=== PATIENT | female | born 1980 | race Caucasian/White ===

== ENCOUNTER 2021-12-08 09:10 | Emergency (ER) | payer SELFPAY ==
[2021-12-08 10:05] LABS: UTC Strep Screen (Rapid) Positive (Negative)
[2021-12-08 10:13] VITALS: BP 171/104; PULSE 88; RESP 16; TEMP 36.5; O2SAT 98; BMI 54.7
--- NOTE | 2021-12-08 10:20 | HMH.EDUTC ---
[facility] [place] Impression: Strep throat Disposition: Home, Self-Care Condition on Discharge: Good Instructions: Strep Throat, DI for Strep Throat Additional Instructions: Drink plenty of fluids. Take tylenol or ibuprofen for pain or fever. Take the medications as directed. Follow up with your regular doctor. GO TO THE ER FOR ANY WORSENING SYMPTOMS Throw your tooth brush away and get a new one. Prescriptions: Benzonatate [Benzonatate 100mg cap] 100 mg PO TIDP PRN #30 cap PRN Reason: Cough Transmission Status: Received by [id number] methylPREDNISolone [Medrol] 4 mg PO DIRECTED 6 Days #21 packet Transmission Status: Received by [id number] Cefdinir [Omnicef 300mg Capsule] 300 mg PO BID #20 cap Transmission Status: Received by [id number] Referrals: Provider,Referral, [Primary Care Provider] - Forms: Work/School Release Time of Disposition: 10:57 Medical Decision Making - Medical Records Medical records reviewed: No: I reviewed the patient's medical records. - Joao Inquiry Pt receiving controlled substance: No Vital Signs: 12/08/21 10:13 12/08/21 11:02 Temperature 97.7 F 97.7 F Temperature Source Oral Pulse Rate 88 Pulse Rate [Left] 88 Respiratory Rate 16 16 Blood Pressure 171/104 H Blood Pressure [Right Arm] 171/104 H Blood Pressure Mean [Right Arm] 126 02 Sat by Pulse Oximetry 98 - Lab Data Lab results reviewed: Yes: I reviewed the patient's lab results. Lab Results 12/08/21 09:44: Strep Scn Rapid Clinic Positive [place] [facility] [place] - General Stated complaint: possible strep Time Seen by Provider: 12/08/21 10:21 Mode of Arrival: Ambulatory Source of Information: Patient Limitations: No Limitations Description of Symptoms (Recalled from Triage Doc. by RN): pt c/o a sore throat. two strep positive household members. HEENT Symptoms (Recalled from RN notes): Yes Resp Symptoms (Recalled from RN notes): No Skin Symptoms (Recalled from RN notes): No MS Symptoms (Recalled from RN notes): No Functional Status (Recalled from RN notes): wnl - History of Present Illness Provider Complaint: She c/o a sore throat, chills, and feeling bad for the past 2 days. Her and her 2 sons all have strep throat at this time already. - Related Data Home Medications Medication Instructions Recorded Confirmed buPROPion HCL [Wellbutrin SR 150mg 150 mg PO DAILY 01/18/19 08/09/19 Tablet] Duloxetine HCl [Cymbalta 30mg 90 mg PO DAILY 08/09/19 08/09/19 capsule] Previous Rx's Medication Instructions Recorded Metaxalone [Skelaxin 800mg Tablet] 800 mg PO TID PRN #12 tab 01/18/19 Azithromycin [Z-Galo 250mg Tab*] 250 mg PO UD DOSE PK #6 tab 08/09/19 Brompheniramine/Pseudoephed/Dm 5 ml PO Q6HP PRN #240 syrup 08/09/19 [Bromfed Dm Cough Syrup] methylPREDNISolone [Medrol] 4 mg PO DIRECTED 6 Days #21 08/09/19 tab.ds.pk Benzonatate [Benzonatate 100mg 100 mg PO TIDP PRN #30 cap 12/08/21 cap] Cefdinir [Omnicef 300mg Capsule] 300 mg PO BID #20 cap 12/08/21 methylPREDNISolone [Medrol] 4 mg PO DIRECTED 6 Days #21 12/08/21 packet Allergies Allergy/AdvReac Type Severity Reaction Status Date / Time amoxicillin [From Augmentin] Allergy Verified 12/08/21 10:18 clavulanic acid Allergy Verified 12/08/21 10:18 [From Augmentin] - Worker's Comp Is this a Worker's Comp case?: No [facility] History - Hepatitis A Screen Drug use history?: No High risk sexual behaviors?: No History of sexually transmitted infection?: No Currently employed?: No Childcare worker?: No Do you have indoor plumbing?: Yes Do you have electricity?: Yes Attestation statement:: This patient has been screened for Hepatitis A risk factors. I have reviewed the patient's past medical history: Yes Fractures: Yes (WRIST/ANKLE) - Social History Alcohol Intake: never Occupational Status: employed Household Members: wade
[2021-12-08 11:02] VITALS: BP 171/104; PULSE 88; RESP 16; TEMP 36.5
== END 2021-12-08 11:09 | disposition home or self-care (01) ==
PROVIDERS: Emergency Provider Nurse Practitioner Family
DX: J02.0 Streptococcal pharyngitis (principal)
CPT/HCPCS: 87880; 99202; G0463

== ENCOUNTER → 2022-04-23 09:51 | Outpatient (CLI) | payer OTHER, SELFPAY ==
--- NOTE | 2022-04-23 09:57 | MM_ITS ---
PROCEDURE INFORMATION: Exam: Bilateral Screening 3D Mammography Exam date and time: 04/23/2022 9:58 AM Age: 41 years old Clinical indication: Screening examination TECHNIQUE: Imaging protocol: Bilateral Screening tomosynthesis and 2D mammography including computer-aided detection (CAD) when performed. COMPARISON: [facility] MAMMO W/CAD BILAT 06/10/2019 10:08 AM FINDINGS: MAMMOGRAPHY: Breast composition: The breasts are almost entirely fatty. Mass: None. Architectural distortion: None. Calcifications: No suspicious calcifications. Asymmetric density: None. Skin thickening: None. Axillary adenopathy: None. IMPRESSION: No mammographic evidence of malignancy. Annual screening is recommended unless otherwise clinically indicated. ASSESSMENT: BI-RADS Category 1: Negative
== END ==
PROVIDERS: Visit Provider Obstetrics & Gynecology
DX: Z12.31 Encounter for screening mammogram for malignant neoplasm of breast (principal)
CPT/HCPCS: 77063; 77067

== ENCOUNTER 2022-05-27 21:17 | Emergency (ER) | payer OTHER, SELFPAY ==
[2022-05-27 22:21] VITALS: BP 146/69; PULSE 93; RESP 17; TEMP 36.8; O2SAT 97; BMI 48.0
[2022-05-27 22:31] VITALS: BP 133/71; PULSE 90; O2SAT 97
--- NOTE | 2022-05-27 22:41 | CT_ITS ---
PROCEDURE INFORMATION: Exam: CT Abdomen And Pelvis Without Contrast Exam date and time: 05/27/2022 10:50 PM Age: 41 years old Clinical indication: Abdominal pain; Generalized; Patient HX: PT had iud inserted 2 weeks ago. Cramping and vag bleeding; Additional info: Abdominal pain/cramping TECHNIQUE: Imaging protocol: Computed tomography of the abdomen and pelvis without contrast. Radiation optimization: All CT scans at this facility use at least one of these dose optimization techniques: automated exposure control; mA and/or kV adjustment per patient size (includes targeted exams where dose is matched to clinical indication); or iterative reconstruction. COMPARISON: No relevant prior studies available. FINDINGS: Lungs: Clear basilar lung parenchyma. Pleural spaces: No pleural fluid. Heart: Normal heart size. Liver: Normal. No mass. Gallbladder and bile ducts: Postprandial gallbladder is contracted. Pancreas: Normal. No ductal dilation. Spleen: Normal. No splenomegaly. Adrenal glands: Normal. No mass. Kidneys and ureters: Punctate intrarenal stone right kidney. No stones on the left. No evidence of obstruction on either side. Stomach and bowel: Unremarkable. No obstruction. No mucosal thickening. Appendix: Normal appendix is confirmed. Intraperitoneal space: No pelvic free fluid. Vasculature: Unremarkable. No abdominal aortic aneurysm. Lymph nodes: Unremarkable. No enlarged lymph nodes. Urinary bladder: Unremarkable as visualized. Reproductive: IUD is positioned low in the uterus with the arms protruding into the myometrium in the mid-uterine body. No adnexal masses. Bones/joints: Unremarkable. No acute fracture. Soft tissues: Fat containing umbilical hernia. IMPRESSION: IUD is malpositioned, centered low in the uterus with the arms protruding into the mid uterine myometrium. No full-thickness perforation or pelvic free fluid.
--- NOTE | 2022-05-27 22:41 | US_ITS ---
PROCEDURE INFORMATION: Exam: US Pelvis, Transvaginal Exam date and time: 05/27/2022 11:18 PM Age: 41 years old Clinical indication: Menstruation abnormalities; Excessive menstruation; Other: Iud replaced 2 wks ago; Patient HX: Iud replaced x 2 wks ago-- bleeding heavy today; Additional info: Iud placement confirmation TECHNIQUE: Imaging protocol: Real-time transvaginal pelvic ultrasound with image documentation. Transvaginal imaging was used for better evaluation of the endometrium, adnexa, and/or cervix. COMPARISON: CT ABDOMEN PELVIS WO CON 05/27/2022 10:50 PM FINDINGS: Uterus: Endometrium measures 6 mm in thickness. Long-stem is properly situated in the endometrial canal. The arms protrude into the myometrium on each side. Physiologic appearance of the ovaries. Cervix: There is an IUD situated in the cervix and lower uterus. Right ovary/adnexa: Normal. No mass. Normal ovarian blood flow. Left ovary/adnexa: Normal. No mass. Normal ovarian blood flow. Intraperitoneal space: No free fluid. Soft tissues: Caesarean section scar noted. IMPRESSION: IUD is malpositioned with the arms protruding into the mid uterine myometrium. Long-stem is properly aligned with the endometrial canal.
[2022-05-27 22:46] LABS: Basophils # 0.1 K/mm3 (0-0.2); Basophils % 0.5 % (0.1-2.0); Eosinophils # 0.4 K/mm3 (0.0-0.4); Eosinophils % 3.8 % (0.1-12.0); Hematocrit 41.2 % (37.0-47.0); Hemoglobin 14.6 g/dL (12.2-16.2); Lymphocytes # 2.1 K/mm3 (0.7-4.5); Lymphocytes % 21.3 % (10-50); Mean Corpuscular HGB Conc 35.4 g/dL (31.8-35.4); Mean Corpuscular Hemoglobin 29.3 pg (27.0-31.2); Mean Corpuscular Volume 82.6 fl (81-99); Mean Platelet Volume 8.5 fl (7.4-10.4); Monocytes # 0.4 K/mm3 (0.1-1.0); Neutrophils % 70.4 % (37.0-80.0); Platelet Count 325 K/mm3 (142-424); Red Blood Count 4.98 M/mm3 (4.20-5.40); Red Cell Distribution Width 13.3 % (11.5-17.5); White Blood Count 9.9 K/mm3 (4.8-10.8)
[2022-05-27 22:47] LABS: Microscopic, Urine URINE MICROSCOPIC (MICROSCOPIC)
[2022-05-27 22:48] LABS: Appearance,Urine CLEAR (Clear); Bilirubin,Urine Negative (Negative); Blood, Urine TRACE-L (Negative); Color,Urine YELLOW (Yellow); Glucose,Urine (UA) Negative (Negative); Ketones,Urine TRACE (Negative); Leukocyte Esterase,Urine Negative (Negative); Nitrate,Urine Negative (Negative); Protein,Urine Negative (Negative); Urobilinogen,Urine 0.2 EU/dl (0.2)
--- NOTE | 2022-05-27 22:50 | HMH.EDUROGF ---
ED Disposition Clinical Impression: DUB (dysfunctional uterine bleeding) Malpositioned IUD Qualifiers: Encounter type: initial encounter Qualified Code(s): T83.32XA - Displacement of intrauterine contraceptive device, initial encounter Disposition: Home, Self-Care Condition on Discharge: Good Instructions: DI for Vaginal Bleeding Additional Instructions: call chronograph operator in am Referrals: Taryn Brock MD [Primary Care Provider] - Kathy Trejo MD [Staff Physician] - - Critical Care Critical Care Time: No Attestation: On 05/27/22, the high probability of a clinically significant, sudden or life threatening deterioration of the following system(s) required my full and direct attention, intervention and personal management. The time I documented below is in addition to time spent performing reported procedures but includes the following listed in this critical care notation. Medical Decision Making - Medical Records Medical records reviewed: Yes: I reviewed the patient's medical records. - Joao Inquiry Pt receiving controlled substance: No Vital Signs: 05/27/22 22:21 Temperature 98.3 F Temperature Source Oral Pulse Rate [Left Radial] 93 H Respiratory Rate 17 Blood Pressure [Left Arm] 146/69 H Blood Pressure Mean [Left Arm] 94 Blood Pressure Source [Left Arm] Automatic Cuff Blood Pressure Position [Left Arm] Sitting 02 Sat by Pulse Oximetry 97 Oxygen Delivery Method Room Air - Lab Data Lab results reviewed: Yes: I reviewed the patient's lab results. Lab Results 05/27/22 22:13: Urine Color Yellow, Urine Appearance Clear, Urine pH 6.0, Ur Specific [place] 1.020, Urine Protein Negative, Urine Glucose (UA) Negative, Urine Ketones Trace, Urine Blood Trace-l, Urine Nitrate Negative, Urine Bilirubin Negative, Urine Urobilinogen 0.2, Ur Leukocyte Esterase Negative, Urine RBC Occasional, Urine WBC Occasional, Ur Squamous Epith Cells Occasional 05/27/22 22:13: Urine HCG, Qual Negative 05/27/22 22:38: WBC 9.9, RBC 4.98, Hgb 14.6, Hct 41.2, MCV 82.6, MCH 29.3, MCHC 35.4, RDW 13.3, Plt Count 325, MPV 8.5, Neut % (Auto) 70.4, Lymph % (Auto) 21.3, [place] % (Auto) 4.0, Eos % (Auto) 3.8, Baso % (Auto) 0.5, Neut # (Auto) 7.0, Lymph # (Auto) 2.1, [place] # (Auto) 0.4, Eos # (Auto) 0.4, Baso # (Auto) 0.1 05/27/22 22:38: Sodium 138, Potassium 4.3, Chloride 108 H, Carbon Dioxide 23, Anion Gap 11.3, BUN 18 H, Creatinine 1.10 H, Estimated Creat Clear 67, Estimated GFR 54 L, Est GFR ( Amer) 66, Glucose 104 H, Calcium 9.4, Total Bilirubin < 0.1 L, AST 35, ALT 34, Alkaline Phosphatase 86, Total Protein 7.7, Albumin 4.3, Globulin 3.4 H, Albumin/Globulin Ratio 1.3 Result diagrams: 05/27/22 22:38 05/27/22 22:38 Orders (Tests/Meds): ED MEDICATIONS Generic Name Dose Route Start Last Admin Trade Name Freq PRN Reason Stop Dose Admin Sodium Chloride 1,000 mls @ 999 mls/hr 05/27/22 22:45 05/27/22 22:48 Sod Chlor 0.9% 1000ml Bag IV 05/27/22 23:45 999 mls/hr .Q1H1M ANASTACIA Administration Discontinued Medications Generic Name Dose Route Start Last Admin Trade Name Freq PRN Reason Stop Dose Admin Ketorolac Tromethamine 30 mg 05/27/22 22:48 05/27/22 22:49 Ketorolac 30mg/Ml Vial IV 05/27/22 22:49 30 mg ONCE ONE Administration - CT Data CT Scan: Abdomen, Pelvis Time Received: 00:[address] Reviewed: Yes: I have viewed the radiologist's interpretation Preliminary Findings: Abnormal (see report ) - US Data US Images: Pelvis ED US Reviewed: Yes: I have viewed radiologist's interpretation Findings Narrative: see report - Physician Consults Physician Consulted: alexandra Reason -: Pt condition Medical Decision Narrative: has stable exam with labs and iud - see reports and will see chronograph operator for follow up Female Urogenital HPI - General Chief complaint: Urogenital-Female Stated complaint: VAG BLEEDING Time Seen by Provider: 05/27/22 22:50 Mode of Arrival: Ambulatory Source of Information: Patient, Medica
[2022-05-27 22:51] LABS: RBC,Urine Occasional #/hpf (0-3); Squamous Epithelial Cell,Urine Occasional #/hpf (0-5); Urine Pregnancy, HCG Qual. Negative (Negative); WBC,Urine Occasional #/hpf (0-3)
[2022-05-27 22:52] LABS: Chloride 108 mmol/L (98-107); Sodium 138 mmol/L (136-145)
[2022-05-27 22:53] LABS: Potassium 4.3 mmoL/L (3.5-5.1)
[2022-05-27 22:55] LABS: Alanine Aminotransferase 34 U/L (12-78); Albumin Level 4.3 g/dl (3.5-5.0); Albumin/Globulin Ratio 1.3 (1.1-1.8); Alkaline Phosphatase 86 U/L (38-126); Anion Gap 11.3 mEq/L (5-15); Aspartate Amino Transferase 35 U/L (14-36); Blood Urea Nitrogen 18 mg/dl (7-17); Carbon Dioxide 23 mmol/L (22.0-30.0); Creatinine Clearance Estimated 67 mL/min (50-200); Estimated Glomerular Filt Rate 54 ml/min (>60); GFR (African American) 66 ML/MIN (>60); Globulin 3.4 g/dL (1.3-3.2); Total Protein,Serum 7.7 g/dl (6.3-8.2)
[2022-05-27 22:56] LABS: Bilirubin,Total < 0.1 mg/dl (0.2-1.3); Calcium 9.4 mg/dl (8.4-10.2); Glucose 104 mg/dl (74-100)
[2022-05-28 00:01] VITALS: BP 117/65; PULSE 83; O2SAT 96
[2022-05-28 00:30] VITALS: BP 126/64; PULSE 79; O2SAT 97
[2022-05-28 00:54] VITALS: BP 126/64; PULSE 87; RESP 16; TEMP 36.9; O2SAT 97
== END 2022-05-28 00:57 | disposition home or self-care (01) ==
PROVIDERS: Emergency Provider Emergency Medicine; PCP Family Medicine
DX: N93.8 Other specified abnormal uterine and vaginal bleeding (principal); T83.32XA Displacement of intrauterine contraceptive device, initial encounter; Z79.51 Long term (current) use of inhaled steroids; Z88.1 Allergy status to other antibiotic agents
CPT/HCPCS: 74176; 76830; 80053; 81001; 81025; 85025; 96365; 96375; 99284

== ENCOUNTER 2022-06-17 19:39 | Emergency (ER) | payer OTHER, SELFPAY ==
[2022-06-17 19:50] VITALS: BP 138/80; PULSE 89; RESP 19; TEMP 36.8; O2SAT 96; BMI 47.9
--- NOTE | 2022-06-17 20:09 | EXP.UTC ---
Discharge Plan Disposition Patient Disposition: Home, Self-Care Condition: Good Prescriptions Prescriptions: New cyclobenzaprine 5 mg tablet 5 mg PO TID PRN (Reason: muscle spasm) Qty: 15 0RF No Action Mirena 20 mcg/24 hours (7 yrs) 52 mg intrauterine device 1 % INTRAUTERI DIRECTED duloxetine 30 mg capsule,delayed release(DR/EC) 90 mg PO DAILY Qty: 90 4RF bupropion HCl 150 MG tablet extended release 24 hr 150 mg PO TID Referrals Follow up/Referrals: Taryn Brock MD [Primary Care Provider] - See instructions Activity Restrictions/Add. Instructions Additional Instructions/Restrictions: Continue to take Ibuprofen as prescribed Over the counter muscle rubs and lidocaine patches may help pain Warm compresses may help with pain and tightness Return if needed Take prescribed muslce relaxers as prescribed Straight to ER if any life threatening symptoms Follow up with Family Doctor if no improvement or any worsening of symptoms Clinical Impressions Clinical Impression: Muscle spasm Stand Alone Forms Stand Alone Forms: Work/School Release Instructions Patient Instructions: DI for Muscle Spasm, Cyclobenzaprine Discharge ED Provider: Madelyn Goodman [facility] General Stated complaint: left shoulder and arm pain Mode of Arrival: Ambulatory Source of Information: Patient Limitations: No Limitations Time Seen by Provider: 06/17/22 20:09 Description of Symptoms (Recalled from Triage Doc. by RN): PATIENT C/O LEFT SHOULDER AND ARM PAIN THAT STARTED APPROX 1.5 WEEKS AGO. NO KNOWN INJURY HEENT Symptoms (Recalled from RN notes): No Resp Symptoms (Recalled from RN notes): No Skin Symptoms (Recalled from RN notes): No MS Symptoms (Recalled from RN notes): Yes Functional Status (Recalled from RN notes): WNL History of Present Illness Provider Complaint: Patient states that for the last week and half she has been having pain in her left shoulder blade area into shoulder and down arm with tingly like feeling in her fingers that is worse with movement States that she woke up with the pain and thinks she may have slept wrong States that area feels tight and hurts when she raises her head up and certain ways she moves her head States that also when she tries to raise arm she has achy like pain like she had before with bursitis Denies chest pain Denies known injury State that pain worse with movement Related Data Home Medications Medication Instructions Recorded Confirmed levonorgestrel 20 mcg/24 hours (7 1 % intrauterine DIRECTED 04/09/22 05/28/22 yrs) 52 mg intrauterine device control (Mirena) bupropion HCl 150 mg 24 hr tablet, 150 mg PO TID ANXIETY/DEPRESSION 05/27/22 05/28/22 extended release Previous Rx's Medication Instructions Recorded duloxetine 30 mg capsule,delayed 90 mg PO DAILY Depression #90 caps 04/09/22 release cyclobenzaprine 5 mg tablet 5 mg PO TID PRN muscle spasm #15 06/17/22 tabs Allergies Allergy/AdvReac Type Severity Reaction Status Date / Time amoxicillin [From Augmentin] Allergy Verified 05/28/22 10:49 clavulanic acid Allergy Verified 05/28/22 10:49 [From Augmentin] Worker's Comp Is this a Worker's Comp case?: No PFSH PFSH Medical History (Updated 06/17/22 @ 20:41 by Madelyn Goodman APRN) Anxiety Asthma Depression Migraine Surgical History (Updated 06/17/22 @ 20:06 by Johana Payne RN) H/O wrist surgery History of ankle surgery History of arthroscopy of knee History of section Hx of breast reduction, elective Social History Smoking Status: Never smoker alcohol intake: never substance use type: denies use current occupational status: employed Travel in the last 8 weeks: None household members: significant other ROS Obtained: Yes All systems reviewed & no additional complaints except as documented and Yes Systems reviewed as appropriat
[2022-06-17 20:42] VITALS: BP 138/80; PULSE 89; RESP 19; TEMP 36.8; O2SAT 96
== END 2022-06-17 20:48 | disposition home or self-care (01) ==
PROVIDERS: Emergency Provider Nurse Practitioner; PCP Family Medicine
DX: M62.838 Other muscle spasm (principal); M25.512 Pain in left shoulder; M79.602 Pain in left arm
CPT/HCPCS: 96372; 99212; G0463

== ENCOUNTER 2022-10-10 17:24 | Emergency (ER) | payer OTHER, SELFPAY ==
[2022-10-10 18:40] VITALS: BP 133/79; PULSE 93; RESP 18; TEMP 36.8; O2SAT 98; BMI 45.6
--- NOTE | 2022-10-10 18:58 | EXP.UTC ---
Discharge Plan Disposition Patient Disposition: Home, Self-Care Condition: Good Prescriptions Prescriptions: New prednisone [prednisone] 20 mg tablet 20 mg PO BID 5 Days Qty: 10 0RF azithromycin [Zithromax Z-Galo] 250 mg tablet See Rx Instructions .ROUTE .COMPLEX 5 Days Qty: 6 0RF Rx Instructions: For 250 mg dose pack: take 500 mg today (day 1), then 250 mg for 4 days (days 2-5) polymyxin B sulf-trimethoprim [Polytrim] 10,000 unit- 1 mg/mL drops 2 drp ophthalmic (eye) Q6H 7 Days Qty: 10 0RF Rx Instructions: right eye while awake; do not exceed 6 doses in 24 hours No Action Mirena 20 mcg/24 hours (7 yrs) 52 mg intrauterine device 1 % INTRAUTERI DIRECTED duloxetine 30 mg capsule,delayed release(DR/EC) 90 mg PO DAILY Qty: 90 0RF bupropion HCl 150 MG tablet extended release 24 hr 150 mg PO TID cyclobenzaprine 5 mg tablet 5 mg PO TID PRN (Reason: muscle spasm) Qty: 15 0RF Referrals Follow up/Referrals: Taryn Brock MD [Primary Care Provider] - See instructions Activity Restrictions/Add. Instructions Additional Instructions/Restrictions: *Monitor Temp, Over the counter Motrin or Tylenol as directed/as needed Tylenol every 4 hours and Motrin every 6 hours (as long as your family doctor has told you that you can take it) for fever or pain. and straight to ER if unable to lower temp less than 101.0 after medication given *Warm salt water gargles may help to soothe the throat *Throat Lozenges? *Warm fluids like tea with honey may help to soothe the throat? *Sleep elevated *Humidifier/Vaporizer Take medication as prescribed Follow up IMMEDIATELY for new or worsening symptoms or no Noticeable improvement over the next 48-72 hours. 911 for difficulty breathing or swallowing Clinical Impressions Clinical Impression: Otitis media, Conjunctivitis Instructions Patient Instructions: Conjunctivitis, DI for Conjunctivitis, Middle Ear Infection Discharge ED Provider: Madelyn Goodman [facility] General Stated complaint: sore throat, crista body aches Mode of Arrival: Ambulatory Source of Information: Patient Limitations: No Limitations Time Seen by Provider: 10/10/22 18:58 Description of Symptoms (Recalled from Triage Doc. by RN): PATIENT C/O CONGESTION, BODY ACHES, COUGH, FATIGUE, AND POSSIBLE PINK EYE HEENT Symptoms (Recalled from RN notes): Yes Resp Symptoms (Recalled from RN notes): Yes Skin Symptoms (Recalled from RN notes): No MS Symptoms (Recalled from RN notes): No Functional Status (Recalled from RN notes): WNL History of Present Illness Provider Complaint: Patient states that she has been having sinus congestion and pressure, pain in her ears, body aches, headache and fatigue States she woke up this morning with her right eye red, draining and thinks she may have pink eye now too Related Data Home Medications Medication Instructions Recorded Confirmed levonorgestrel 20 mcg/24 hours (8 1 % intrauterine DIRECTED 04/09/22 05/28/22 yrs) 52 mg intrauterine device control (Mirena) bupropion HCl 150 mg 24 hr tablet, 150 mg PO TID ANXIETY/DEPRESSION 05/27/22 05/28/22 extended release Previous Rx's Medication Instructions Recorded cyclobenzaprine 5 mg tablet 5 mg PO TID PRN muscle spasm #15 06/17/22 tabs duloxetine 30 mg capsule,delayed 90 mg PO DAILY #90 caps 06/22/22 release azithromycin 250 mg tablet See Rx Instructions PO .COMPLEX 5 10/10/22 (Zithromax Z-Galo) days #6 tabs polymyxin B sulfate 10,000 2 drp ophthalmic (eye) Q6H 7 days 10/10/22 unit-trimethoprim 1 mg/mL eye #10 mL drops (Polytrim) prednisone 20 mg tablet 20 mg PO BID 5 days #10 tabs 10/10/22 Allergies Allergy/AdvReac Type Severity Reaction Status Date / Time amoxicillin [From Augmentin] Allergy Verified 05/28/22 10:49 clavulanic acid Allergy Verified 05/28/22 10:49 [From Augmentin] Worker's Comp Is this a Worker's Comp case?: No
[2022-10-10 19:13] VITALS: BP 133/79; PULSE 93; RESP 18; TEMP 36.8; O2SAT 98
[2022-10-10 19:25] LABS: UTC Influenza A Antigen Negative (Negative)
[2022-10-10 19:26] LABS: UTC Influenza B Antigen Negative (Negative)
== END 2022-10-10 19:19 | disposition home or self-care (01) ==
PROVIDERS: Emergency Provider Nurse Practitioner; PCP Family Medicine
DX: H66.90 Otitis media, unspecified, unspecified ear (principal); H10.9 Unspecified conjunctivitis
CPT/HCPCS: 87804; 99212; G0463

== ENCOUNTER → 2023-02-27 11:42 | Outpatient (CLI) | payer OTHER, SELFPAY ==
--- NOTE | 2023-02-27 11:47 | XR_ITS ---
FINAL REPORT CLINICAL HISTORY: SI JOINT DISFUNCTION RADICULAR PAIN OF RT LOER EXTREMITY FINDINGS: LUMBAR SPINE Five views demonstrate no acute fracture. There are mild degenerative changes in the lower lumbar spine. Mild rightward curvature is identified. An IUD seen in the mid pelvis.. There is no malalignment. IMPRESSION: Degenerative changes without acute bony abnormality. Reviewed, Interpreted and Dictated by Karlos Ly III, MD Transcribed by Rubi Guerrero Authenticated and [facility]
== END ==
LOC: RAD 11:42
PROVIDERS: PCP Family Medicine; Visit Provider Nurse Practitioner Family
DX: M53.3 Sacrococcygeal disorders, not elsewhere classified (principal); M54.10 Radiculopathy, site unspecified
CPT/HCPCS: 72110

== ENCOUNTER → 2023-04-05 10:45 | Outpatient (CLI) | payer OTHER, SELFPAY ==
--- NOTE | 2023-04-05 10:57 | MR_ITS ---
FINAL REPORT CLINICAL HISTORY: LUMBAGO WITH RIGHT SIDED SCIATICA X 1 MONTH COMPARISON: None FINDINGS: Multiplanar MR imaging of the lumbar spine was performed without contrast. On the sagittal T2-weighted images, there is abnormal decreased signal involving the L3-4, L4-5, and L5-S1 lumbar discs. The vertebrae are of normal height. The vertebral alignment is normal. L1-2: There is no significant canal stenosis or neural foraminal narrowing. L2-3: There is no significant canal stenosis or neural foraminal narrowing. L3-4: There is mild to moderate facet hypertrophy present at this level. L4-5: There is a mild broad-based disc bulge with [id number] facet hypertrophy and [id number] bilateral neural foraminal narrowing. L5-S1: There is a mild broad-based bulge with mild facet hypertrophy and [id number] left neural foraminal narrowing. IMPRESSION: Lumbar disc disease primarily at the L3-4, L4-5, and L5-S1 levels as described above. Reviewed, Interpreted and Dictated by Mark Vasquez MD Transcribed by Adrienne Cartwright Authenticated and [facility]
== END ==
LOC: RAD 10:45
PROVIDERS: PCP Family Medicine; Visit Provider Nurse Practitioner Family
DX: M54.41 Lumbago with sciatica, right side (principal)
CPT/HCPCS: 72148; 76376

== ENCOUNTER → 2023-05-31 13:15 | Outpatient (CLI) | payer OTHER, SELFPAY ==
[2023-05-31 13:49] LABS: Basophils # 0.1 K/mm3 (0-0.2); Basophils % 0.6 % (0.1-2.0); Eosinophils # 0.2 K/mm3 (0.0-0.4); Eosinophils % 2.9 % (0.1-12.0); Hematocrit 43.5 % (37.0-47.0); Hemoglobin 14.5 g/dL (12.2-16.2); Lymphocytes # 1.6 K/mm3 (0.7-4.5); Lymphocytes % 21.8 % (10-50); Mean Corpuscular HGB Conc 33.4 g/dL (31.8-35.4); Mean Corpuscular Hemoglobin 28.3 pg (27.0-31.2); Mean Corpuscular Volume 84.6 fl (81-99); Mean Platelet Volume 8.5 fl (7.4-10.4); Monocytes # 0.4 K/mm3 (0.1-1.0); Monocytes % 5.6 % (1.7-9.3); Platelet Count 340 K/mm3 (142-424); Red Blood Count 5.14 M/mm3 (4.20-5.40); Red Cell Distribution Width 13.6 % (11.5-17.5); White Blood Count 7.3 K/mm3 (4.8-10.8)
[2023-05-31 14:25] LABS: Chloride 110 mmol/L (98-107)
[2023-05-31 14:26] LABS: Potassium 4.5 mmoL/L (3.5-5.1); Sodium 142 mmol/L (136-145)
[2023-05-31 14:28] LABS: Alanine Aminotransferase 32 U/L (12-78); Alkaline Phosphatase 78 U/L (38-126); Aspartate Amino Transferase 25 U/L (14-36); Bilirubin,Total 0.5 mg/dl (0.2-1.3)
[2023-05-31 14:29] LABS: Albumin Level 3.7 g/dl (3.5-5.0); Albumin/Globulin Ratio 1.2 (1.1-1.8); Anion Gap 13.5 mEq/L (5-15); Calcium 9.3 mg/dl (8.4-10.2); Carbon Dioxide 23 mmol/L (22.0-30.0); Chol/HDL Ratio 4.3 (1-3.5); Cholesterol 167 mg/dl (140-200); Glucose 105 mg/dl (74-100); HDL Cholesterol 39 mg/dl (40-60); Iron 58 ug/dL (37-170); Total Protein,Serum 6.7 g/dl (6.3-8.2); Triglycerides 75 mg/dl (30-150); VLDL Cholesterol 15 mg/dL (0-40)
[2023-05-31 14:39] LABS: Total Iron Binding Capacity 334 ug/dL (265-497)
[2023-05-31 14:40] LABS: Direct LDL Cholesterol 99.84 mg/dL (100-129)
[2023-05-31 15:00] LABS: Thyroid Stimulating Hormone 1.14 uIU/mL (0.465-4.68)
[2023-05-31 15:52] LABS: 25-OH Vitamin D, Total 30.2 ng/mL (30-100)
[2023-05-31 16:14] LABS: Hemoglobin A1C 5.4 % (4.0-6.0)
[2023-05-31 20:20] LABS: Blood Urea Nitrogen 18 mg/dl (7-17); Estimated Glomerular Filt Rate 68 ml/min (>60); GFR (African American) 82 ML/MIN (>60)
[2023-05-31 20:33] LABS: Intact Parathyroid Hormone 77.4 pg/mL (7.5-53.5)
[2023-05-31 21:40] LABS: Folate 7.99 ng/mL
[2023-06-03 17:36] LABS: Ferritin 21.7 ng/ml (6.24-137)
[2023-06-06 06:13] LABS: Vitamin B1 163.9 nmol/L (66.5-200.0)
[2023-06-06 12:01] LABS: Methylmalonic Acid 157 nmol/L (0-378)
[2023-06-07 14:21] LABS: Vitamin A 44.6 ug/dL (20.1-62.0); Vitamin E Alpha Tocopherol 11.2 mg/L (7.0-25.1); Vitamin E Gamma Tocopherol 1.2 mg/L (0.5-5.5)
== END ==
LOC: LAB 13:16
PROVIDERS: PCP Nurse Practitioner Family; Visit Provider Physician Assistant
DX: E66.9 Obesity, unspecified (principal); Z68.42 Body mass index [BMI] 45.0-49.9, adult; Z79.899 Other long term (current) drug therapy
CPT/HCPCS: 36415; 80053; 80061; 82306; 82728; 82746; 83036; 83540; 83550; 83921; 83970; 84425; 84443; 84446; 84590; 85025

== ENCOUNTER 2023-11-29 11:47 | Emergency (ER) | payer OTHER, SELFPAY ==
[2023-11-29 12:10] VITALS: PULSE 98; RESP 22; TEMP 37; O2SAT 100; BMI 57.1
--- NOTE | 2023-11-29 12:27 | ED_ITS ---
Discharge Plan Disposition Patient Disposition: Home, Self-Care Condition: Good Prescriptions Prescriptions: New cefdinir 300 mg capsule 300 mg PO BID Qty: 20 0RF No Action duloxetine 30 mg capsule,delayed release(DR/EC) 90 mg PO DAILY Qty: 90 0RF bupropion HCl 150 MG tablet extended release 24 hr 150 mg PO TID Referrals Follow up/Referrals: Taryn Brock MD [Primary Care Provider] - See instructions Activity Restrictions/Add. Instructions Additional Instructions/Restrictions: *Monitor Temp, Over the counter Motrin or Tylenol as directed/as needed Tylenol every 4 hours and Motrin every 6 hours (as long as your family doctor has told you that you can take it) for fever or pain. and straight to ER if unable to lower temp less than 101.0 after medication given *Warm salt water gargles may help to soothe the throat *Throat Lozenges? *Warm fluids like tea with honey may help to soothe the throat? *Sleep elevated *Humidifier/Vaporizer * Your throat swab was sent for culture. Those results are typically sent to your primary care. Be sure to follow up in 2-3 days with your family doctor/primary care physician if no improvement so they can review those result and treat if necessary. If you don?t have a primary care doctor, I recommend you get one but in the mean time, you will have to return to a walk in clinic Follow up IMMEDIATELY for new or worsening symptoms or no Noticeable improvement over the next 48-72 hours. 911 for difficulty breathing or swallowing Clinical Impressions Clinical Impression: Strep throat Instructions Patient Instructions: DI for Strep Throat, Strep Throat Discharge ED Provider: Madelyn Goodman [facility] [place] HPI General Stated complaint: sore throat, [place], body aches, dizzy Mode of Arrival: Ambulatory Source of Information: Patient Limitations: No Limitations Time Seen by Provider: 11/29/23 12:27 Description of Symptoms (Recalled from Triage Doc. by RN): PATIENT C/O SORE THROAT, CONGESTION, BODY ACHES AND DIZZINESS X 2 DAYS HEENT Symptoms (Recalled from RN notes): Yes Resp Symptoms (Recalled from RN notes): No Skin Symptoms (Recalled from RN notes): No MS Symptoms (Recalled from RN notes): No Functional Status (Recalled from RN notes): WNL History of Present Illness Provider Complaint: Patient states that she has been having sore throat, nasal congestion pain in her ears, dizziness on and off and body aches for the last couple of days so today she came in to get checked Related Data Home Medications Medication Instructions Recorded Confirmed bupropion HCl 150 mg 24 hr tablet, 150 mg PO TID ANXIETY/DEPRESSION 05/27/22 11/29/23 extended release Previous Rx's Medication Instructions Recorded duloxetine 30 mg capsule,delayed 90 mg PO DAILY #90 caps 06/22/22 release cefdinir 300 mg capsule 300 mg PO BID #20 caps 11/29/23 Allergies Allergy/AdvReac Type Severity Reaction Status Date / Time amoxicillin [From Augmentin] AdvReac Vomiting Verified 11/29/23 12:34 clavulanic acid AdvReac Vomiting Verified 11/29/23 12:34 [From Augmentin] Worker's Comp Is this a Worker's Comp case?: No [facility] Disclaimer: The information contained in this section may have been updated after the jeff bang was seen, as this information can be updated by other users. Medical History (Updated 11/29/23 @ 12:38 by Madelyn Goodman APRN) Anxiety Asthma Depression Migraine Surgical History H/O wrist surgery History of ankle surgery History of arthroscopy of knee History of section Hx of breast reduction, elective Social History (Updated 10/10/22 @ 18:51 by Johana Payne RN) Smoking Status: Never smoker alcohol intake: never substance use type: denies use current occupational status: employed Travel in the last 8 weeks: None household members: significant other ROS Obtained: Yes All systems reviewed & no additional complaints except as documented and Yes Systems reviewed as appropriate & no additional complaints except as documented Constitutional Constitutional: Reports system reviewed and no additional complaints, except as documented, Reports as per HPI, Reports body ache, Reports chills, Reports fever (s) and Reports headache(s) ENT Ears, Nose, Mouth, and Throat: Reports system reviewed and no additional complaints, except as documented, Reports as per HPI, Reports dizziness, Reports otalgia, Reports headache(s) and Reports sore throat Cardiovascular Cardiovascular: Reports system reviewed and no additional complaints, except as documented and Reports as per HPI Respiratory Respiratory: Reports system reviewed and no additional complaints, except as documented and Reports as per HPI Neurologic Neurologic: Reports dizziness and Reports headache(s) Physical Exam General General appearance: alert and in no apparent distress ENT ENT exam: Present mucous membranes moist Expanded ENT Exam TM/Canal exam: Right TM: erythema and Bilateral TM: bulging Nose exam: Present sinus tenderness Throat exam: Present other (mild pharyngeal erythema noted with PND) Respiratory Respiratory exam: Present normal lung sounds bilaterally; Absent respiratory distress or wheezes Cardiovascular Cardiovascular exam: Present regular rate, normal rhythm and normal heart sounds Neurological Exam Neurological exam: Present alert, oriented X3 and normal gait Medical Decision Making Joao Inquiry Pt receiving controlled substance: No Joao was queried for this patient: No Vital Signs: 11/29/23 12:10 Temperature 98.6 F Temperature Source Oral Pulse Rate [Right Brachial] 98 H Respiratory Rate 22 02 Sat by Pulse Oximetry 100 Oxygen Delivery Method Room Air Lab Data Lab results reviewed: Yes I reviewed the patient's lab results. Medical Decision Narrative: Patient states that she is not allergic to Augmentin it makes her vomit and she has taken Cefdnir in the past without complications or reactions
[2023-11-29 12:36] VITALS: BP 0/0; PULSE 98; RESP 22; TEMP 37; O2SAT 100
[2023-11-29 12:49] LABS: UTC Influenza A Antigen Negative (Negative); UTC Strep Screen (Rapid) Positive (Negative)
[2023-11-29 12:50] LABS: UTC Influenza B Antigen Negative (Negative)
== END 2023-11-29 12:50 | disposition home or self-care (01) ==
PROVIDERS: Emergency Provider Nurse Practitioner; PCP Family Medicine
DX: J02.0 Streptococcal pharyngitis (principal); R07.0 Pain in throat; R51.9 Headache, unspecified; R42 Dizziness and giddiness; R09.81 Nasal congestion; M79.18 Myalgia, other site
CPT/HCPCS: 87804; 87880; 99212; 99214; G0463

== ENCOUNTER 2023-12-20 08:57 | Emergency (ER) | payer OTHER, SELFPAY ==
[2023-12-20 09:05] VITALS: PULSE 100; RESP 18; TEMP 36.8; O2SAT 97; BMI 53.1
--- NOTE | 2023-12-20 09:16 | EXP.UTC ---
Discharge Plan Disposition Patient Disposition: Home, Self-Care Condition: Good Prescriptions Prescriptions: New azithromycin [Zithromax] 250 mg tablet 250 mg PO UD DOSE PK Qty: 6 0RF Rx Instructions: Take two (2) tablets today, then one (1) tablet days #2 thru #5 benzonatate 100 mg capsule 100 mg PO TIDP PRN (Reason: Cough) Qty: 30 0RF methylprednisolone 4 mg Tablets,Dose Pack 4 mg PO DIRECTED 6 Days Qty: 21 0RF Rx Instructions: Take 1 pack as directed for 6 days No Action duloxetine 30 mg capsule,delayed release(DR/EC) 90 mg PO DAILY Qty: 90 0RF bupropion HCl 150 MG tablet extended release 24 hr 150 mg PO TID Referrals Follow up/Referrals: Taryn Brock MD [Primary Care Provider] - See instructions Activity Restrictions/Add. Instructions Additional Instructions/Restrictions: Drink plenty of fluids. Take tylenol or ibuprofen for pain or fever. Take the medications as directed. Follow up with your regular doctor. GO TO THE ER FOR ANY WORSENING SYMPTOMS Throw your tooth brush away and get a new one. Clinical Impressions Clinical Impression: Strep throat Stand Alone Forms Stand Alone Forms: Work/School Release Instructions Patient Instructions: Strep Throat, DI for Strep Throat Discharge ED Provider: Kristopher Gagnon [facility] General Stated complaint: body aches, sore throat Time Seen by Provider: 12/20/23 09:16 History of Present Illness Provider Complaint: She states that for the past 2 days she has had chills, sore throat, cough and malaise. Related Data Home Medications Medication Instructions Recorded Confirmed bupropion HCl 150 mg 24 hr tablet, 150 mg PO TID ANXIETY/DEPRESSION 05/27/22 12/20/23 extended release Previous Rx's Medication Instructions Recorded duloxetine 30 mg capsule,delayed 90 mg (3 x 30 mg) PO DAILY #90 caps 06/22/22 release azithromycin 250 mg tablet 250 mg PO UD DOSE PK #6 tabs 12/20/23 (Zithromax) benzonatate 100 mg capsule 100 mg PO TIDP PRN Cough #30 caps 12/20/23 methylprednisolone 4 mg tablets in 4 mg PO DIRECTED 6 days #21 tabs 12/20/23 a dose pack Allergies Allergy/AdvReac Type Severity Reaction Status Date / Time amoxicillin [From Augmentin] AdvReac Vomiting Verified 12/20/23 09:53 clavulanic acid AdvReac Vomiting Verified 12/20/23 09:53 [From Augmentin] [facility] Disclaimer: The information contained in this section may have been updated after the patient was seen, as this information can be updated by other users. Medical History (Updated 12/20/23 @ 09:55 by Kristopher Gagnon APRN) Depression Anxiety Migraine Asthma Surgical History History of ankle surgery H/O wrist surgery History of arthroscopy of knee Hx of breast reduction, elective History of section Social History Smoking Status: Never smoker alcohol intake: never substance use type: denies use current occupational status: employed Travel in the last 8 weeks: None household members: significant other ROS Obtained: Yes All systems reviewed & no additional complaints except as documented Constitutional Constitutional: Reports chills and Reports fever(s) Eyes Eyes: Denies eye discharge ENT Ears, Nose, Mouth, and Throat: Reports as per HPI Cardiovascular Cardiovascular: Denies chest pain Respiratory Respiratory: Denies chest congestion and Reports cough Gastrointestinal Gastrointestingal: Reports nausea; Denies abdominal pain, constipation, cramping, diarrhea or vomiting Musculoskeletal Musculoskeletal: Denies arthralgias Integumentary/Breasts Skin/Breast: Denies rash Neurologic Neurologic: Denies paresthesias Physical Exam General General appearance: alert and in no apparent distress Head Head exam: atraumatic, normocephalic and normal inspection Eye Eye exam: Present normal appearance, PERRL and EOMI ENT ENT exam: Present mucous membranes moist and normal external ear exam Expanded ENT Exam TM/Canal exam: Bilateral TM: erythema and bulging Nose exam: Absent sinus tenderness Mouth exam: Present normal external inspection; Absent drooling Teeth exam: Present normal inspection Throat exam: Present tonsillar erythema, tonsillomegaly and tonsillar exudate Neck Neck exam: Present normal inspection, full ROM and trachea midline; Absent tenderness, meningismus or lymphadenopathy Chest Chest inspection: Present normal inspection and symmetric chest wall rise; Absent tenderness Respiratory Respiratory exam: Present normal lung sounds bilaterally; Absent respiratory distress, wheezes or stridor Cardiovascular Cardiovascular exam: Present regular rate and normal rhythm; Absent systolic murmur or diastolic murmur Abdominal Exam Abdominal exam: Present soft and normal bowel sounds; Absent distention, tenderness, guarding, rebound or rigidity Extremities Exam Extremities exam: Present normal inspection and normal capillary refill; Absent calf tenderness Back Exam Back exam: Present normal inspection and full ROM; Absent tenderness, CVA tenderness (R) or CVA tenderness (L) Neurological Exam Neurological exam: Present alert, oriented X3 and CN II-XII intact Psychiatric Psychiatric exam: Present normal affect and normal mood Skin Skin exam: Present warm, dry, intact and normal color Medical Decision Making Medical Records Medical records reviewed: No I reviewed the patient's medical records. Joao Inquiry Pt receiving controlled substance: No Lab Data Lab results reviewed: Yes I reviewed the patient's lab results.
[2023-12-20 09:44] LABS: UTC Strep Screen (Rapid) Positive (Negative)
[2023-12-20 10:08] VITALS: BP 0/0; PULSE 100; RESP 18; TEMP 36.8; O2SAT 97
== END 2023-12-20 10:08 | disposition home or self-care (01) ==
PROVIDERS: Emergency Provider Nurse Practitioner Family; PCP Family Medicine
DX: J02.0 Streptococcal pharyngitis (principal); R07.0 Pain in throat; R05.9 Cough, unspecified; R53.81 Other malaise
CPT/HCPCS: 87880; 99212; 99214; G0463

== ENCOUNTER 2024-01-02 16:42 | Emergency (ER) | payer OTHER, SELFPAY ==
[2024-01-02 16:55] VITALS: BP 187/105; PULSE 97; RESP 24; TEMP 36.8; O2SAT 100; BMI 53.1
--- NOTE | 2024-01-02 17:34 | ED_ITS ---
Discharge Plan Disposition Patient Disposition: Home, Self-Care Condition: Good Prescriptions Prescriptions: New meclizine 25 mg tablet 25 mg PO TID PRN (Reason: dizziness) Qty: 12 0RF cefdinir 300 mg capsule 300 mg PO BID Qty: 20 0RF fluticasone propionate [Flonase Allergy Relief] 50 mcg/actuation spray,suspension 1 - 2 spray intranasal DAILY Qty: 16 0RF Rx Instructions: administer into each nostril No Action duloxetine 30 mg capsule,delayed release(DR/EC) 90 mg PO DAILY Qty: 90 0RF bupropion HCl 150 MG tablet extended release 24 hr 150 mg PO TID Referrals Follow up/Referrals: Taryn Brock MD [Primary Care Provider] - See instructions Activity Restrictions/Add. Instructions Additional Instructions/Restrictions: *Monitor Temp, Over the counter Motrin or Tylenol as directed/as needed Tylenol every 4 hours and Motrin every 6 hours (as long as your family doctor has told you that you can take it) for fever or pain. and straight to ER if unable to lower temp less than 101.0 after medication given *Warm salt water gargles may help to soothe the throat *Throat Lozenges? *Warm fluids like tea with honey may help to soothe the throat? *Sleep elevated *Humidifier/Vaporizer *Flonase 2 sprays in each nostril daily but be aware that it may take 2-3 days before you notice improvement Your throat swab was sent for culture. Those results are typically sent to your primary care. Be sure to follow up in 2-3 days with your family doctor/primary care physician if no improvement so they can review those result and treat if necessary. If you don?t have a primary care doctor, I recommend you get one but in the mean time, you will have to return to a walk in clinic Follow up IMMEDIATELY for new or worsening symptoms or no Noticeable impro vement over the next 48-72 hours. 911 for difficulty breathing or swallowing Clinical Impressions Clinical Impression: Otitis media Instructions Patient Instructions: DI for Vertigo, Ear Infections (Alternative Therapy) Discharge ED Provider: Madelyn Goodman [facility] [place] HPI General Stated complaint: dizzy, body aches Mode of Arrival: Ambulatory Source of Information: Patient Limitations: No Limitations Time Seen by Provider: 01/02/24 17:34 Description of Symptoms (Recalled from Triage Doc. by RN): PATIENT C/O BODY ACHES, DIZZINESS, EAR PRESSURE, AND SORE THROAT THAT STARTED AROUND MIDNIGHT HEENT Symptoms (Recalled from RN notes): Yes Resp Symptoms (Recalled from RN notes): No Skin Symptoms (Recalled from RN notes): No MS Symptoms (Recalled from RN notes): No Functional Status (Recalled from RN notes): WNL History of Present Illness Provider Complaint: Patient states that she has been having pain and pressure in both ears for several weeks but last night started with body aches, chills, sore throat and feeling dizzy at times when she moves or stands too quickly states feel like the room is spinning around her thinks it may be from her ears so today when she wasnt feeling any better she came in to get checked Related Data Home Medications Medication Instructions Recorded Confirmed bupropion HCl 150 mg 24 hr tablet, 150 mg PO TID ANXIETY/DEPRESSION 05/27/22 01/02/24 extended release Previous Rx's Medication Instructions Recorded duloxetine 30 mg capsule,delayed 90 mg (3 x 30 mg) PO DAILY #90 caps 06/22/22 release cefdinir 300 mg capsule 300 mg PO BID #20 caps 01/02/24 fluticasone propionate 50 1 - 2 spray intranasal DAILY #16 01/02/24 mcg/actuation nasal grams spray,suspension (Flonase Allergy Relief) meclizine 25 mg tablet 25 mg PO TID PRN dizziness #12 tabs 01/02/24 Allergies Allergy/AdvReac Type Severity Reaction Status Date / Time amoxicillin [From Augmentin] AdvReac Vomiting Verified 12/20/23 09:53 clavulanic acid AdvReac Vomiting Verified 12/20/23 09:53 [From Augmentin] Worker's Comp Is this a Worker's Comp case?: No [facility] Disclaimer: The information contained in this section may have been updated after the patient was seen, as this information can be updated by other users. Medical History (Updated 01/02/24 @ 17:49 by Madelyn Goodman APRN) Depression Anxiety Migraine Asthma Surgical History History of ankle surgery H/O wrist surgery History of arthroscopy of knee Hx of breast reduction, elective History of section Social History Smoking Status: Never smoker alcohol intake: never substance use type: denies use current occupational status: employed Travel in the last 8 weeks: None household members: significant other ROS Obtained: Yes All systems reviewed & no additional complaints except as documented and Yes Systems reviewed as appropriate & no additional complaints except as documented Constitutional Constitutional: Reports system reviewed and no additional complaints, except as documented and Reports as per HPI ENT Ears, Nose, Mouth, and Throat: Reports system reviewed and no additional complaints, except as documented, Reports as per HPI and Reports otalgia Cardiovascular Cardiovascular: Reports system reviewed and no additional complaints, except as documented and Reports as per HPI Respiratory Respiratory: Reports system reviewed and no additional complaints, except as documented and Reports as per HPI Gastrointestinal Gastrointestingal: Reports system reviewed and no additional complaints, except as documented and as per HPI Musculoskeletal Musculoskeletal: Reports system reviewed and no additional complaints, except as documented and Reports as per HPI Physical Exam General General appearance: alert and in no apparent distress ENT ENT exam: Present mucous membranes moist Expanded ENT Exam TM/Canal exam: Right TM: erythema and bulging Respiratory Respiratory exam: Present normal lung sounds bilaterally; Absent respiratory distress or wheezes Cardiovascular Cardiovascular exam: Present regular rate, normal rhythm and normal heart sounds Neurological Exam Neurological exam: Present alert, oriented X3 and normal gait Medical Decision Making Joao Inquiry Pt receiving controlled substance: No Joao was queried for this patient: No Vital Signs: 01/02/24 16:55 Temperature 98.3 F Temperature Source Oral Pulse Rate [Right Brachial] 97 H Respiratory Rate 24 Blood Pressure [Right Arm] 187/105 H Blood Pressure Mean [Right Arm] 132 Blood Pressure Source [Right Arm] Automatic Cuff Blood Pressure Position [Right Arm] Sitting 02 Sat by Pulse Oximetry 100 Oxygen Delivery Method Room Air Lab Data Lab results reviewed: Yes I reviewed the patient's lab results. Medical Decision Narrative: discussed elevated blood pressure rechecked 163/93 patient states that she will see PCP
[2024-01-02 17:36] LABS: UTC Influenza A Antigen Negative (Negative); UTC Strep Screen (Rapid) Negative (Negative)
[2024-01-02 17:37] LABS: UTC Influenza B Antigen Negative (Negative)
[2024-01-02 18:00] VITALS: BP 163/93; PULSE 97; RESP 24; TEMP 36.8; O2SAT 100
== END 2024-01-02 18:02 | disposition home or self-care (01) ==
PROVIDERS: Emergency Provider Nurse Practitioner; PCP Family Medicine
DX: H66.93 Otitis media, unspecified, bilateral (principal); R42 Dizziness and giddiness; R07.0 Pain in throat; M79.18 Myalgia, other site
CPT/HCPCS: 87804; 87880; 99212; 99214; G0463

== ENCOUNTER 2024-02-19 12:38 | Emergency (ER) | payer OTHER, SELFPAY ==
[2024-02-19 12:50] VITALS: BP 164/112; PULSE 93; RESP 20; TEMP 36.7; O2SAT 97; BMI 53.1
[2024-02-19 13:04] LABS: UTC Strep Screen (Rapid) Negative (Negative)
--- NOTE | 2024-02-19 13:06 | EXP.UTC ---
Discharge Plan Disposition Patient Disposition: Home, Self-Care Condition: Good Prescriptions Prescriptions: No Action duloxetine 30 mg capsule,delayed release(DR/EC) 90 mg PO DAILY Qty: 90 0RF bupropion HCl 150 MG tablet extended release 24 hr 150 mg PO TID trazodone 50 mg tablet 50 mg PO DAILY Patient Comments: TAKE ONE TABLET BY MOUTH EVERY DAY AT BEDTIME buspirone 10 mg tablet 10 mg PO DAILY Referrals Follow up/Referrals: Taryn Brock MD [Primary Care Provider] - See instructions Activity Restrictions/Add. Instructions Additional Instructions/Restrictions: *Monitor Temp, Over the counter Motrin or Tylenol as directed/as needed Tylenol every 4 hours and Motrin every 6 hours (as long as your family doctor has told you that you can take it) for fever or pain. and straight to ER if unable to lower temp less than 101.0 after medication given *Warm salt water gargles may help to soothe the throat *Throat Lozenges? *Warm fluids like tea with honey may help to soothe the throat? *Sleep elevated *Humidifier/Vaporizer Your throat swab was sent for culture. Those results are typically sent to your primary care. Be sure to follow up in 2-3 days with your family doctor/primary care physician if no improvement so they can review those result and treat if necessary. If you don?t have a primary care doctor, I recommend you get one but in the mean time, you will have to return to a walk in clinic Follow up IMMEDIATELY for new or worsening symptoms or no Noticeable improvement over the next 48-72 hours. 911 for difficulty breathing or swallowing Clinical Impressions Clinical Impression: Viral upper respiratory infection Instructions Patient Instructions: Sore Throat, DI for Viral Upper Respiratory Infection -- Adult Discharge ED Provider: Madelyn Goodman [facility] General Stated complaint: sore throat, congestion, body aches Mode of Arrival: Ambulatory Source of Information: Patient Limitations: No Limitations Time Seen by Provider: 02/19/24 13:06 Description of Symptoms (Recalled from Triage Doc. by RN): PATIENT C/O SORE THROAT, EAR PAIN, CONGESTION, COUGH, HEADACHE AND BODY ACHES SINCE YESTERDAY MORNING HEENT Symptoms (Recalled from RN notes): Yes Resp Symptoms (Recalled from RN notes): Yes Skin Symptoms (Recalled from RN notes): No MS Symptoms (Recalled from RN notes): No Functional Status (Recalled from RN notes): WNL History of Present Illness Provider Complaint: Patient states that she started feeling bad yesterday morning States that she has been having sore throat, headache, nasal congestion, ear pain and cough States today she wasnt feeling any better and she was worried that she may have strep throat so she came in to get checked Related Data Home Medications Medication Instructions Recorded Confirmed bupropion HCl 150 mg 24 hr tablet, 150 mg PO TID ANXIETY/DEPRESSION 05/27/22 02/19/24 extended release buspirone 10 mg tablet 10 mg PO DAILY 02/19/24 02/19/24 trazodone 50 mg tablet 50 mg PO DAILY 02/19/24 02/19/24 Previous Rx's Medication Instructions Recorded duloxetine 30 mg capsule,delayed 90 mg (3 x 30 mg) PO DAILY #90 caps 06/22/22 release Allergies Allergy/AdvReac Type Severity Reaction Status Date / Time amoxicillin [From Augmentin] AdvReac Vomiting Verified 12/20/23 09:53 clavulanic acid AdvReac Vomiting Verified 12/20/23 09:53 [From Augmentin] Worker's Comp Is this a Worker's Comp case?: No [facility] Disclaimer: The information contained in this section may have been updated after the patient was seen, as this information can be updated by other users. Medical History (Updated 02/19/24 @ 13:12 by Madelyn Goodman APRN) Depression Anxiety Migraine Asthma Surgical History History of ankle surgery H/O wrist surgery History of arthroscopy of knee Hx of breast reduction, elective History of section Social History Smoking Status: Never smoker alcohol intake: never substance use type: denies use current occupational status: employed Travel in the last 8 weeks: None household members: significant other ROS Obtained: Yes All systems reviewed & no additional complaints except as documented and Yes Systems reviewed as appropriate & no additional complaints except as documented Constitutional Constitutional: Reports system reviewed and no additional complaints, except as documented, Reports as per HPI, Reports body ache and Reports headache(s) ENT Ears, Nose, Mouth, and Throat: Reports system reviewed and no additional complaints, except as documented, Reports as per HPI, Reports headache(s), Reports nasal congestion, Reports nasal discharge and Reports sore throat Cardiovascular Cardiovascular: Reports system reviewed and no additional complaints, except as documented and Reports as per HPI Respiratory Respiratory: Reports system reviewed and no additional complaints, except as documented, Reports as per HPI and Reports cough Gastrointestinal Gastrointestingal: Reports system reviewed and no additional complaints, except as documented and as per HPI Genitourinary Female Genitourinary: Reports system reviewed and no additional complaints, except as documented and Reports as per HPI Neurologic Neurologic: Reports headache(s) Physical Exam General General appearance: alert and in no apparent distress ENT ENT exam: Present mucous membranes moist Expanded ENT Exam Nose exam: Absent sinus tenderness Throat exam: Present other (Mild pharyngeal erythema noted) Respiratory Respiratory exam: Present normal lung sounds bilaterally; Absent respiratory distress or wheezes Cardiovascular Cardiovascular exam: Present regular rate, normal rhythm and normal heart sounds Neurological Exam Neurological exam: Present alert, oriented X3 and normal gait Medical Decision Making Joao Inquiry Pt receiving controlled substance: No Joao was queried for this patient: No Vital Signs: 02/19/24 12:50 Temperature 98.1 F Temperature Source Oral Pulse Rate [Left Brachial] 93 H Respiratory Rate 20 Blood Pressure [Left Arm] 164/112 H Blood Pressure Mean [Left Arm] 129 Blood Pressure Source [Left Arm] Automatic Cuff Blood Pressure Position [Left Arm] Sitting 02 Sat by Pulse Oximetry 97 Oxygen Delivery Method Room Air Lab Data Lab results reviewed: Yes I reviewed the patient's lab results. Lab Results 02/19/24 12:58: Strep Scn Rapid Clinic Negative Orders (Tests/Meds): ORDERS Category Date Time Status Strep Screen Confirmation Stat Micro 02/19/24 12:58 Received
[2024-02-19 13:16] VITALS: BP 164/112; PULSE 93; RESP 20; TEMP 36.7; O2SAT 97
== END 2024-02-19 13:17 | disposition home or self-care (01) ==
PROVIDERS: Emergency Provider Nurse Practitioner; PCP Family Medicine
DX: R51.9 Headache, unspecified (principal); R05.9 Cough, unspecified; H92.03 Otalgia, bilateral; J06.9 Acute upper respiratory infection, unspecified; B34.9 Viral infection, unspecified
CPT/HCPCS: 87880; 99212; 99213; G0463

== ENCOUNTER 2024-08-28 13:26 | Emergency (ER) | payer OTHER, SELFPAY ==
[2024-08-28 14:20] VITALS: BP 144/89; PULSE 90; RESP 18; TEMP 37.2; O2SAT 99; BMI 53.8
--- NOTE | 2024-08-28 14:35 | EXP.UTC ---
Discharge Plan Disposition Patient Disposition: Home, Self-Care Condition: Good Prescriptions Prescriptions: New methylprednisolone 4 mg Tablets,Dose Pack 4 mg PO DIRECTED 6 Days Qty: 21 0RF Rx Instructions: Take 1 pack as directed for 6 days azithromycin [Zithromax] 250 mg tablet 250 mg PO UD DOSE PK Qty: 6 0RF Rx Instructions: Take two (2) tablets today, then one (1) tablet days #2 thru #5 benzonatate 100 mg capsule 100 mg PO TIDP PRN (Reason: Cough) Qty: 30 0RF No Action buspirone 10 mg tablet 10 mg PO DAILY Patient Comments: TAKE ONE TABLET BY MOUTH TWICE DAILY duloxetine 60 mg capsule,delayed release(DR/EC) 60 mg PO DAILY Patient Comments: TAKE TWO CAPSULES BY MOUTH EVERY DAY aripiprazole 2 mg tablet 2 mg PO HS Patient Comments: TAKE ONE TABLET BY MOUTH EVERY DAY AT BEDTIME Referrals Follow up/Referrals: Taryn Brock MD [Primary Care Provider] - See instructions Activity Restrictions/Add. Instructions Additional Instructions/Restrictions: Drink plenty of fluids. Take tylenol or ibuprofen for pain or fever. Take the medications as directed. Follow up with your regular doctor. GO TO THE ER FOR ANY WORSENING SYMPTOMS Clinical Impressions Clinical Impression: Bronchitis Sinusitis Qualifiers: Sinusitis location: unspecified location Chronicity: acute Recurrence: non-recurrent Qualified Code(s): J01.90 - Acute sinusitis, unspecified Stand Alone Forms Stand Alone Forms: Work/School Release Instructions Patient Instructions: Sinusitis, DI for Sinusitis Print Language Print Language: Telugu Discharge ED Provider: Kristopher Gagnon [facility] General Stated complaint: sore throat, cough Mode of Arrival: Ambulatory Source of Information: Patient Limitations: No Limitations Time Seen by Provider: 08/28/24 14:35 Description of Symptoms (Recalled from Triage Doc. by RN): PATIENT C/O SORE THROAT, COUGH AND HEADACHE THAT STARTED TODAY HEENT Symptoms (Recalled from RN notes): Yes Resp Symptoms (Recalled from RN notes): Yes Skin Symptoms (Recalled from RN notes): No MS Symptoms (Recalled from RN notes): No Functional Status (Recalled from RN notes): WNL Related Data Home Medications ?Medication ?Instructions ?Recorded ?Confirmed aripiprazole 2 mg tablet 2 mg PO HS 08/28/24 08/28/24 buspirone 10 mg tablet 10 mg PO DAILY 08/28/24 08/28/24 duloxetine 60 mg capsule,delayed 60 mg PO DAILY 08/28/24 08/28/24 release Previous Rx's ?Medication ?Instructions ?Recorded azithromycin 250 mg tablet 250 mg PO UD DOSE PK #6 tabs 08/28/24 (Zithromax) benzonatate 100 mg capsule 100 mg PO TIDP PRN Cough #30 caps 08/28/24 methylprednisolone 4 mg tablets in 4 mg PO DIRECTED 6 days #21 tabs 08/28/24 a dose pack Allergies Allergy/AdvReac Type Severity Reaction Status Date / Time amoxicillin (From Augmentin) AdvReac Vomiting Verified 12/20/23 09:53 clavulanic acid (From AdvReac Vomiting Verified 12/20/23 09:53 Augmentin) Worker's Comp Is this a Worker's Comp case?: No [facility] Disclaimer: The information contained in this section may have been updated after the patient was seen, as this information can be updated by other users. Medical History (Updated 08/28/24 @ 14:45 by Kristopher Gagnon APRN) Depression Anxiety Migraine Asthma Surgical History History of ankle surgery H/O wrist surgery History of arthroscopy of knee Hx of breast reduction, elective History of section Social History Smoking Status: Never smoker alcohol intake: never substance use type: denies use current occupational status: employed Travel in the last 8 weeks: None household members: significant other ROS Obtained: Yes All systems reviewed & no additional complaints except as documented Constitutional Constitutional: Reports chills and Reports fever(s) Eyes Eyes: Denies eye discharge ENT Ears, Nose, Mouth, and Throat: Reports as per HPI Cardiovascular Cardiovascular: Denies chest pain Respiratory Respiratory: Denies chest congestion and Reports cough Gastrointestinal Gastrointestingal: Reports nausea; Denies abdominal pain, constipation, cramping, diarrhea or vomiting Musculoskeletal Musculoskeletal: Denies arthralgias Integumentary/Breasts Skin/Breast: Denies rash Neurologic Neurologic: Denies paresthesias Physical Exam General General appearance: alert and in no apparent distress Head Head exam: atraumatic, normocephalic and normal inspection Eye Eye exam: Present normal appearance, PERRL and EOMI ENT ENT exam: Present mucous membranes moist and normal external ear exam Expanded ENT Exam TM/Canal exam: Bilateral TM: erythema and bulging Nose exam: Absent sinus tenderness Mouth exam: Present normal external inspection; Absent drooling Teeth exam: Present normal inspection Throat exam: Present tonsillar erythema, tonsillomegaly and tonsillar exudate Neck Neck exam: Present normal inspection, full ROM and trachea midline; Absent tenderness, meningismus or lymphadenopathy Chest Chest inspection: Present normal inspection and symmetric chest wall rise; Absent tenderness Respiratory Respiratory exam: Present normal lung sounds bilaterally; Absent respiratory distress, wheezes, stridor or accessory muscle use Cardiovascular Cardiovascular exam: Present regular rate and normal rhythm; Absent systolic murmur or diastolic murmur Abdominal Exam Abdominal exam: Present soft and normal bowel sounds; Absent distention, tenderness, guarding, rebound or rigidity Extremities Exam Extremities exam: Present normal inspection and normal capillary refill; Absent calf tenderness Back Exam Back exam: Present normal inspection and full ROM; Absent tenderness, CVA tenderness (R) or CVA tenderness (L) Neurological Exam Neurological exam: Present alert, oriented X3 and CN II-XII intact Psychiatric Psychiatric exam: Present normal affect and normal mood Skin Skin exam: Present warm, dry, intact and normal color Medical Decision Making Medical Records Medical records reviewed: No I reviewed the patient's medical records. Screening: Per USPSTF and CDC recommendations, given the prevalence of disease in our region, it is our hospital?s policy to screen for HIV and viral Hepatitis for all patients aged 18 and over and those with ongoing risk factors. Joao Inquiry Pt receiving controlled substance: No Vital Signs: 08/28/24 14:20 Temperature 99.0 F Temperature Source Oral Pulse Rate [Left Brachial] 90 Respiratory Rate 18 Blood Pressure [Left Arm] 144/89 H Blood Pressure Mean [Left Arm] 107 Blood Pressure Source [Left Arm] Automatic Cuff Blood Pressure Position [Left Arm] Sitting 02 Sat by Pulse Oximetry 99 Oxygen Delivery Method Room Air Lab Data Lab results reviewed: Yes I reviewed the patient's lab results.
[2024-08-28 14:53] LABS: UTC Influenza A Antigen Negative (Negative); UTC Strep Screen (Rapid) Negative (Negative)
[2024-08-28 14:54] LABS: UTC Influenza B Antigen Negative (Negative)
[2024-08-28 14:59] VITALS: BP 144/89; PULSE 90; RESP 18; TEMP 37.2; O2SAT 99
== END 2024-08-28 15:04 | disposition home or self-care (01) ==
PROVIDERS: Emergency Provider Nurse Practitioner Family; PCP Family Medicine
DX: J20.9 Acute bronchitis, unspecified (principal); J01.90 Acute sinusitis, unspecified
CPT/HCPCS: 99212; G0381; 87804; 87880

== ENCOUNTER 2024-12-14 15:39 | Outpatient (CLI) | payer OTHER, SELFPAY ==
--- NOTE | 2024-12-14 15:42 | XR_ITS ---
FINAL REPORT CLINICAL HISTORY: Nonspecific cough COMPARISON: None FINDINGS: No acute pulmonary density is evident. There is no evidence of effusion or other pleural disease. The mediastinum has a normal appearance. The cardiac silhouette is unremarkable. IMPRESSION: Unremarkable chest exam. Reviewed, Interpreted and Dictated by Paul Thornton MD Transcribed by Jenise Zamudio Authenticated and [facility]
== END 2024-12-14 23:59 | disposition home or self-care (01) ==
LOC: RAD 15:40
PROVIDERS: PCP Family Medicine; Visit Provider Student in an Organized Health Care Education/Training Program
DX: R05.9 Cough, unspecified (principal)
CPT/HCPCS: 71046